=== PATIENT | female | born 1995 | race Two or more races ===

== ENCOUNTER 2016-09-19 16:35 | Emergency (ER) | payer OTHER ==
[~2016-09-19] VITALS: Ht 162.6 cm; Wt 61.2 kg
--- NOTE | 2016-09-19 16:51 | NUR ---
PRESENTS SELF TO ED DT ANXIETY AND DEPRESSION,. DENIES HI/SI. VSS
[2016-09-19] MEDS ORDERED: LORAZEPAM 1 MG TABLET ONE (17:24)
--- NOTE | 2016-09-19 17:29 | NUR ---
HUMA AT BEDSIDE
[2016-09-19] MEDS ORDERED: LORAZEPAM 1 MG TABLET PO ONE (17:30)
[2016-09-19 18:01] VITALS: BP 129/75
--- NOTE | 2016-09-19 18:02 | NUR ---
Patient discharged to home in stable condition. Written and verbal after care instructions given. Patient verbalizes understanding of instruction.
== END 2016-09-19 18:03 | disposition home or self-care (01) ==
LOC: ER 16:42
DX: F41.9 Anxiety disorder, unspecified (principal); F32.9 Major depressive disorder, single episode, unspecified
CPT/HCPCS: 99284; A4606; Z7610